=== PATIENT | male | born 1955 | race Caucasian/White ===

== ENCOUNTER → 2018-09-20 | Outpatient (REF) | payer OTHER ==
[~2018-09-20] VITALS: Ht 172.7 cm; Wt 86.2 kg
[~2018-09-20] MED LIST: ACIPHEX20 MG OR; ACIPHEX20 MG PO; AMLODIPINE5 MG PO; ASPIRIN325 MG PO; ATENOLOL25 MG PO; ENALAPRIL10 MG PO; FISH OIL1000 MG PO; FLONASE NASAL50 MCG; GABAPENTIN100 MG PO; LIPITOR10 M1 PO; LIPITOR20 MG PO; LIPITOR40 M1 PO; MECLIZINE25 MG PO; PANTOPRAZOLE SO40 MG PO; PLAVIX75 MG PO; PROTONIX40 M2 PO; SUCRALFATE1 GM PO; ZOCOR20 MG PO
[2018-09-20 09:18] VITALS: BP 149/76
== END | disposition home or self-care (01) | DRG 392 ==
LOC: FIORUCCI 08:59
PROVIDERS: ATTEND Surgery
DX: K21.9 Gastro-esophageal reflux disease without esophagitis (principal); Z12.11 Encounter for screening for malignant neoplasm of colon; Z80.0 Family history of malignant neoplasm of digestive organs